=== PATIENT | male | born 1945 | race Caucasian/White ===

== ENCOUNTER → 2020-01-30 | Outpatient (CLI) | payer OTHER ==
[~2020-01-30] MED LIST: ASPIR 8181 MG; CRESTOR10 MG PO; CRESTOR40 MG PO; ELIQUIS5 MG PO; FISH OIL 1,0001 EAC9 PO; IBUPROFEN 800800 M1 PO; IBUPROFEN 800800 MG PO; LISINOPRIL10 MG PO; METOPROLOL SUCC50 MG PO; NORCO 5-325 TA1 EACH PO; OXYCODONE HCL 55 MG PO; POTASSIUM99 M1 PO; TAMSULOSIN HCL0.4 MG PO; TOPROL XL25 MG PO; TRAMADOL 50 MG50 MG PO
[2020-01-30 09:43] LABS: ABSOLUTE BASOPHILS 0.1 thou/uL (0.0-0.2); ABSOLUTE EOSINOPHILS 0.2 thou/uL (0.0-0.7); ABSOLUTE LYMPHOCYTES 1.8 thou/uL (0.8-5.3); ABSOLUTE MONOCYTES 0.6 thou/uL (0.0-1.2); ABSOLUTE NEUTROPHILS 5.9 thou/uL (1.6-8.1); EOSINOPHILS 2.3 %; HEMATOCRIT 39.8 % (42.0-52.0); HEMOGLOBIN 13.9 gm/dL (14.0-18.0); LYMPHOCYTES 20.5 %; MCH 33.8 pg (26.0-34.0); MCV 96.6 fL (80.0-100.0); MPV 8.4 fl. (7.2-11.1); NUCLEATED RBCS 0 /100WBC; PLATELET COUNT* 181 thou/uL (150-400); POLYS 69.2 %; RBC 4.12 mil/uL (4.50-6.00); RDW-CV 13.3 % (10.5-14.5); WBC 8.6 thou/uL (4.0-11.0)
[2020-01-30 09:56] LABS: APTT 23.9 Seconds (25.0-31.3); PROTIME 10.3 Seconds (9.20-11.50)
[2020-01-30 09:57] LABS: ALBUMIN 3.7 g/dL (3.4-5.0); CALCIUM 8.8 mg/dL (8.5-10.1); CREATININE 1.3 mg/dL (0.6-1.3); POTASSIUM 4.4 mmol/L (3.5-5.1); TOTAL BILIRUBIN 0.5 mg/dL (<0.1-1.0); TOTAL PROTEIN 7.1 g/dL (6.4-8.2)
[2020-01-30 11:00] LABS: ESR (SEDRATE) 5 mm/hr (0-20)
--- NOTE | 2020-01-30 11:41 | EKG ---
[place] [address] ELECTROCARDIOGRAM REPORT Name: ANGELI STERN Room: [facility]#: [id number] Admission: 01/30/20 Attend Phys: Maximus Suarez DO Discharge: Date of : 45 Date of Service: 01/30/2004 Report #: [id number] THIS REPORT FOR: //name// [facility] Test Date: 2020-01-30 Test Time: 09:04:38 Pat Name: ANGELI STERN Department: Room: Gender: Roll Carrier: : 1945 Requested By: Maximus Suarez Order Number: [id number] Reading MD: Caio Lemons Measurements Intervals Alsen Rate: 73 P: 37 WI: 260 QRS: -16 QRSD: 88 T: 66 QT: 350 QTc: 386 Interpretive Statements Sinus rhythm Prolonged WI interval Borderline left axis deviation Abnormal R-wave progression, early transition Compared to ECG 05/30/2009 08:06:51 T-wave abnormality no longer present Electronically Signed On 01-30-2020 11:40:47 CDT by Caio Lemons [email or web address] <ELECTRONICALLY SIGNED> By: Caio Lemons MD, FAC 01/30/20 1140 0904 0904 Caio Lemons MD, [facility] /EPI
[2020-01-31 02:06] LABS: GLYCOHEMOGLOBIN (HGB A1C) 6.1 % (4.8-5.6)
== END ==
LOC: M.LAB 06:54
PROVIDERS: ATTEND Orthopaedic Surgery
DX: Z01.812 Encounter for preprocedural laboratory examination (principal); Z20.828 Contact with and (suspected) exposure to other viral communicable diseases; M17.12 Unilateral primary osteoarthritis, left knee; I49.5 Sick sinus syndrome; R94.31 Abnormal electrocardiogram [ECG] [EKG]

== ENCOUNTER 2020-02-05 08:19 | Observation (INO) | payer OTHER ==
[~2020-02-05] VITALS: Ht 177.8 cm; Wt 108.9 kg
[~2020-02-05 08:19] MED LIST changes: -ELIQUIS5 MG PO; -OXYCODONE HCL 55 MG PO
--- NOTE | 2020-02-05 16:42 | NUR ---
PATIENT ARRIVED TO UNIT FROM PACU AT 1625. ALERT AND ORIENTED X 4. VITAL SIGNS STABLE ON ROOM AIR. AFEBRILE. CONTINUOUS PULSE OX IN PLACE. SCD PUMPS IN PLACE BILATERALLY. DRESSING TO LEFT KNEE CLEAN, DRY, INTACT. ICE PACKS IN PLACE. ON-Q PUMP IN PLACE TO LEFT KNEE. ORIENTED PATIENT TO ROOM. CALL LIGHT WITHIN REACH. NURSING WILL CONTINUE TO MONITOR.
[2020-02-05 16:47] VITALS: BP 130/66
[2020-02-06] VITALS: BP 102/45
[2020-02-06 03:08] VITALS: BP 145/67
[2020-02-06 04:30] LABS: HEMATOCRIT 38.2 % (42.0-52.0); HEMOGLOBIN 13.1 gm/dL (14.0-18.0)
--- NOTE | 2020-02-06 06:51 | NUR ---
PT HAD GOOD NIGHT. PAIN CONTROLLED WITH TYLENOL AND OXYCODONE PO, RATIANG PAIN 6/10. HE HAS BEEN MOVING LEG A SMALL AMOUNT. FLUIDS AND ANTIBIOTICS INFUSED PER ORDER. PT IS ANXIOUS TO GET OUT OF BED, BUT HAS BEEN INSTRUCTED TO WAIT FOR PT. HE HAS MANY QUESTIONS ABOUT DISCHARGE.
[2020-02-06 08:00] VITALS: BP 143/56
[2020-02-06] MEDS ORDERED: ELIQUIS5 MG PO (08:47)
[2020-02-06] MEDS ORDERED: OXYCODONE HCL 55 MG PO (08:47)
--- NOTE | 2020-02-06 10:15 | NUR ---
RECIEVED O.T. ORDER. WILL DEFER TO P.T. AT THIS TIME. PLEASE ORDER FURTHER O.T. SERVICES IF NEEDED.
[2020-02-06 12:00] VITALS: BP 169/76
[2020-02-06 14:26] VITALS: BP 169/76
--- NOTE | 2020-02-06 17:04 | NUR ---
DISCHARGED TO HOME WITH SPOUSE. IV DC'D WITH CATH CANNULA INTACT AND PRESSURE APPLIED UNTIL BLEEDING CEASED AND COTTON BALL AND TAPE APPLIED. PT VERBALIZED UNDERSTANDING TO ALL DISCHARGE INSTRUCTIONS. SCRIPTS GIVEN TO PT. Q-PUMP INTACT TO PT AND INFORMED HIM TO PULL IT OUT IN 3 DAYS. PATIENT VERBALIZED UNDERSTANDING. TAKEN OUT BY W/C WITH ALL BELONGINGS WITH HIM.
--- NOTE | 2020-02-06 17:57 | NUR ---
PT.TO DISCHARGE HOME TODAY. HAS BEEN CLEARED BY P.T. HE LIVES WITHHIS . SHE CAN ASSIST HIM NEEDED. HE WOULD LIKE TO DO OUTPT.THERAPY AT [facility] ON [address] [place]. CONTACTED SAUL AND FAXED HER FACE SHEET,OP REPORT AND ORDERS TO [facility] [address] . THEY WILL CALL HIM TOMORROW TO SET UP APPT. CM CALLED IN PRESCRPTION FOR ELIQUIS TO [facility]. COPAY WAS $21. PT.INFORMED.
--- NOTE | 2020-02-19 12:57 | OP ---
[address] [address] OPERATIVE REPORT Name: ANGELI STERN Sue Room: [address] Karlene Garcia#: [id number] Admission: 02/05/20 Attend Phys: Rick Bush Discharge: 02/06/20 Date of : 45 Report #: [id number] THIS REPORT FOR: //name// cc: Joe Gillette MD, Dean L. 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 OPERATION PERFORMED: Left total knee arthroplasty. SURGEON: Maximus Suarez DO ASSISTANTS: 1. Vipin Starr DO 2. Herbert Nelson DO ANESTHESIA: Spinal anesthetic. IMPLANTS: Biomet Vanguard anterior stabilized femur, size 65; a 71-mm tibial plate; a 34-mm asymmetric patella; and a 10-mm anterior stabilized tibial bearing. Two bags of Biomet Renetta cement. He received 1 gram of TXA preop and 1 postop IV and 2 grams Ancef antibiotics preop. COMPLICATIONS: None. ESTIMATED BLOOD LOSS: 100 mL. SPECIMENS: None. INDICATIONS FOR SURGERY: The patient is a 75-year-old male, who has had severe left knee pain for years. He has tried conservative treatment, such as physical therapy, bracing, and injections, which have provided [id number]-[id number] relief. He now has pain throughout the day that is waking him up at night and limiting his activities of daily living. Risks and complications have been discussed in detail with the patient, including but not limited to neurovascular injury, infection, fracture, need for further surgery, failure of prosthetics, recall of prosthetics, allergies, deep vein thrombosis, including pulmonary embolism, [place] [address] OPERATIVE REPORT Name: ANGELI STERN Room: [address] Karlene Garcia#: [id number] Admission: 02/05/20 Attend Phys: Rick Bush Discharge: 02/06/20 Date of : 45 Report #: [id number] instability, need for blood transfusion, chronic pain, and even . Signed informed consent was obtained and attached to the chart and his knee was marked in the preoperative area. SURGICAL PROCEDURE: The patient was seen in the preoperative area and the correct extremity and procedure were verified. The patient was taken to the operating room suite and placed in a supine position. Following a spinal anesthetic, the patient's left knee was prepped and draped in the usual sterile fashion with tourniquet to the proximal left thigh. Surgery was done without utilization of the tourniquet due to spinal anesthetic and excellent blood pressure throughout the procedure. After a timeout technique, incision was made anteriorly along the anterior portion of the knee through skin and subcutaneous tissue down to the extensor mechanism. Median parapatellar arthrotomy was made. The patella was everted. The knee was then flexed to 120 degrees. There was a severe cartilage loss on the medial femoral condyle with eburnation of bone throughout the tibia on the medial side as well. The distal femoral drill was used to ream the femur. The intramedullary guide with cutting block was placed into the intramedullary canal. It was pinned into place in 5 degrees of valgus and 10 mm were resected from the distal femur. After resection of the distal femur, the tibial guide was aligned externally in all planes, pinned into place and 10 mm from the highest point of the lateral tibial plateau was resected. Flexion and extension gaps were then checked and found to be near symmetric with a plan for further release of the MCL after sizing. Femur was then measured anterior to posterior. The 4-in-1 cutting block was placed. Appropriate external rotation was carefully measured and the distal femur was then resected appropriately using the block with the anterior and posterior condylar cuts and anterior and posterior chamfer cuts. Femoral block was removed and all bony fragments were removed. Tibia was then measured with the appropriate-sized tibial trials pinned into place and aligned in all planes. A trial femur was then impacted. Trial reduction was performed of various sized spacers. A 10-mm spacer gave excellent stability throughout the entire arc of motion. A slight release was performed at the MCL and this gave symmetric varus and valgus stress. The decision was made to proceed with an anterior stabilized bearing. The patella was then reamed with the Renetta reaming system down to the 14 mm remaining. It was then measured, drilled and the appropriate patellar button was applied for trial reduction. The patella tracked anatomically. Final components were obtained and placed on the back table. All sclerotic areas of bone were drilled with cement for better interdigitation of cement. Posterior capsule was then injected with anesthetic solution. Irrigation was performed with pulsatile lavage. Final components were ready on the back table. Two bags of Biomet Renetta cement were mixed. Cement was placed onto the final components as well as placed into the femur, tibia, and patella with digital pressurization. The tibia was impacted first removing all excess cement. The femur was then impacted, followed by patella. All excess cement was removed. Tibial spacer was then trialled and a 10 mm gave excellent range of motion and stable gaps. A 10 mm final poly was then placed and locked [place] [address] OPERATIVE REPORT Name: ANGELI STERN Room: [address] Karlene Garcia#: [id number] Admission: 02/05/20 Attend Phys: Rick Bush Discharge: 02/06/20 Date of : 45 Report #: [id number] locking bar. Patellar clamp was applied. The knee was then irrigated with pulsatile lavage. The knee was then held in extension for hardening of the cement. It was then placed in 90 degrees and the capsule was closed with #1 Vicryl in wyeqvj-vx-jxeno fashion. This was reinforced with #1 Quill in a running fashion. Skin was approximated with 2-0 Monocryl subcutaneous sutures followed by running 3-0 Stratafix subcuticular suture. Dermabond glue was applied to the skin. Mepilex dressing was placed followed by thigh high PATTI hose. The patient was taken to the recovery room in stable condition. He tolerated the procedure well. Final instrument and sponge counts were performed x 2 and verified to be correct. Dr. Suarez was present for the entirety of the case. <ELECTRONICALLY SIGNED> By: Maximus Suarez, 02/19/20 1257 [id number] [id number] bradley Valentin
== END 2020-02-06 16:00 | disposition home or self-care (01) ==
LOC: M.PRE → M.TBA 10:21 → M.PRE 12:03 → M.ORTHSURG 16:22 → M.PRE 17:04 → M.ORTHSURG 02-06 16:00
PROVIDERS: Orthopaedic Surgery; ADMIT Internal Medicine; ATTEND Internal Medicine
DX: M17.12 Unilateral primary osteoarthritis, left knee (principal); I25.10 Atherosclerotic heart disease of native coronary artery without angina pectoris; G47.33 Obstructive sleep apnea (adult) (pediatric); E78.5 Hyperlipidemia, unspecified; I10 Essential (primary) hypertension; Z95.818 Presence of other cardiac implants and grafts; Z79.82 Long term (current) use of aspirin; Z79.899 Other long term (current) drug therapy

== ENCOUNTER → 2020-04-02 | Outpatient (CLI) | payer OTHER ==
[~2020-04-02] MED LIST changes: +ELIQUIS5 MG PO; +OXYCODONE HCL 55 MG PO
== END ==
LOC: M.ULTRA 09:15
PROVIDERS: ATTEND Internal Medicine
DX: I82.411 Acute embolism and thrombosis of right femoral vein (principal); I82.412 Acute embolism and thrombosis of left femoral vein